=== PATIENT | female | born 1995 | race Asian ===

== ENCOUNTER 2016-07-31 12:05 | Observation (INO) | payer OTHER ==
[2016-07-31] MEDS ORDERED: NS 1,000 ML IV ONE ×2 (12:28→14:14)
[2016-07-31 12:49] LABS: COLOR YELLOW; LEUKOCYTE ESTERASE,URINE 1+ (NEGATIVE); NITRITE,URINE NEGATIVE (NEGATIVE)
[2016-07-31 12:52] LABS: BACTERIA 1+ /hpf (NONE SEEN); MUCUS 3+ /lpf (NONE-1+)
[2016-07-31 13:02] LABS: ADD MORPH? NO; ADD SCAN? YES; FRAGMENT RBC FLAG 0 (0-99); HEMATOCRIT 48.9 % (38.0-47.0); HEMOGLOBIN 16.4 g/dL (12.6-16.3); LEFT SHIFT FLG 0 (0-99); LIPEMIA HEMOLYSIS FLAG 80 (0-99); MEAN CELL HEMOGLOBIN 28.9 pg (27.9-34.1); MEAN CELL HEMOGLOBIN CONCENTR. 33.5 g/dL (32.4-36.7); MEAN CELL VOLUME 86.2 fL (81.5-99.8); MEAN PLATELET VOLUME 10.6 fL (8.7-11.7); PLATELET CLUMPS FLAG 0 (0-99); PLATELET COUNT 157 10^3/uL (150-400); RED BLOOD CELL COUNT 5.67 10^6/uL (4.18-5.33); RED CELL DISTRIBUTION WIDTH 12.4 % (11.5-15.2)
[2016-07-31 13:05] LABS: ATYPICAL LYMPHOCYTE FLAG 150 (0-99)
--- NOTE | 2016-07-31 13:10 | EDPHY ---
H & P Stated Complaint: fever, vomit, epigastric pain x 8 days--finished zpack and tamiflu HPI/ROS: CHIEF COMPLAINT: Nausea, vomiting, influenza HISTORY OF PRESENT ILLNESS: Patien for the complaints.t complains of 8 days history of flu-like symptoms. Body aches, chills, cough, nausea vomiting. She was seen at [facility] 3 times this week. She was diagnosed with influenza placed on Tamiflu. She was also diagnosed with bronchitis and placed on Zithromax and albuterol. Her symptoms persist despite these. She continues to vomit and has difficulty keeping even liquids down. She has had a fever throughout, which intermittently in briefly improves with Tylenol and ibuprofen. No chest pain. The cough is persistent and productive at times, and at times it is nonproductive. She has no lower abdominal pain. She has no flank pain. No rashes or lesions. No neck pain or stiffness. No headache. No other associated complaints or modifying factors. REVIEW OF SYSTEMS: Ten systems reviewed and are negative unless otherwise noted in the HPI PERTINENT MEDICAL HISTORY: Influenza, bronchitis EXAMINATION General Appearance: Alert, no distress Head: normocephalic, atraumatic Eyes: Pupils equal and round, no conjunctival pallor or injection ENT, Mouth: Mucous membranes moist. Uvula midline. No erythema or edema. Airway is widely patent. Neck: Normal inspection, supple, non-tender. Trachea midline. Respiratory: Mild rhonchi. No crackles or diminishment. No retractions. No distress. Cardiovascular: Regular rate and rhythm. No murmur. Pulses intact distally. Gastrointestinal: Abdomen is soft. Mild tenderness in the epigastrium. No tympany. No rigidity. No distention. No CVA tenderness. Back: non-tender, no bony abnormalities Neurological: A&O, nonfocal, GCS 15. Skin: Warm and dry, no rash. No petechiae or purpura. Extremities: Nontender, no pedal edema Psychiatric: Mood and affect normal DIFFERENTIAL DIAGNOSES: Including but not limited to influenza, infectious mononucleosis, viral illness , bronchitis, pneumonia, dehydration, electrolyte disturbance MDM: 1:15 p.m. Flu-like symptoms with ongoing nausea and vomiting. Vital signs are stable. Abdominal exam is mildly tender in the epigastrium, but exam is benign and nonacute. Laboratory studies are pending. I will order antiemetics and IV fluid resuscitation. 2:15 p.m. X-ray reveals cardiomegaly question the possibility of murmurs. I have re- evaluated the patient and there is no murmur by auscultation appreciated. Her laboratory studies reveal a leukocytopenia with some lymphocytopenia as well. 2:30 p.m. Patient is feeling minimally better and still not tolerating intake by mouth. She does have laboratory studies as listed above. They are uncomfortable concerned about going home given the duration of the vomiting. I have contacted hospitalist and discussed case with Dr. Rubio. He will admit the patient to observation status. She is admitted in stable condition SUPERVISION: This patient was independently evaluated without direct examination by the attending physician. Case was discussed with attending physician. Case discussed with Dr. Flores Source: Patient Exam Limitations: No limitations - Personal History LMP (Females 10-55): 8-14 Days Ago Current Tetanus/Diphtheria Vaccine: Unsure Current Tetanus Diphtheria and Acellular Pertussis (TDAP): Unsure - Medical/Surgical History Hx Asthma: No Hx Chronic Respiratory Disease: No Hx Diabetes: No Hx Cardiac Disease: No Hx Renal Disease: No Hx Cirrhosis: No Hx Alcoholism: No Hx HIV/AIDS: No Hx Splenectomy or Spleen Trauma: No Other PMH: healthy. no surgeries - Social History Smoking Status: Never smoked Constitutional: Initial Vital Signs Temperature (C) 98.4 F 07/31/16 12:15 Heart Rate 87 07/31/16 12:15 Respiratory Rate 16 07/31/16 12:15 Blood Pressure 116/76 07/31/16 12:15 O2 Sat (%) 98 07/31/16 12:15 O2 Delivery Mode Room Air Allergies/Adverse Reactions: No Known Allergies Allergy (Unverified 07/31/16 12:13) Home Medications: Medication Instructions Recorded Tamiflu 07/31/16 Zofran Odt 07/31/16 Medical Decision Making - Diagnostics Imaging Results: Imaging Impressions Chest X-Ray 07/31/16 13:21 Impression: 1. Airways disease. No pneumonia. 2. Mild cardiomegaly. Are there any heart murmurs? Results discussed with Braxton Jauregui at 1:42 PM - Data Points Laboratory Results: Laboratory Results 07/31/16 12:55 07/31/16 12:55 07/31/16 07/31/16 07/31/16 12:55 12:55 12:55 WBC 2.85 10^3/uL L 10^3/uL (3.80-9.50) RBC 5.67 10^6/uL H 10^6/uL (4.18-5.33) Hgb 16.4 g/dL H g/dL (12.6-16.3) Hct 48.9 % H % (38.0-47.0) MCV 86.2 fL fL (81.5-99.8) MCH 28.9 pg pg (27.9-34.1) MCHC 33.5 g/dL g/dL (32.4-36.7) RDW 12.4 % % (11.5-15.2) Plt Count 157 10^3/uL 10^3/uL (150-400) MPV 10.6 fL fL (8.7-11.7) Neut % (Auto) Not Reported Lymph % (Auto) Not Reported [place] % (Auto) Not Reported Eos % (Auto) Not Reported Baso % (Auto) Not Reported Nucleat RBC Rel Count 0.0 % % (0.0-0.2) Absolute Neuts (auto) Not Reported Absolute Lymphs (auto) Not Reported Absolute Monos (auto) Not Reported Absolute Eos (auto) Not Reported Absolute Basos (auto) Not Reported Absolute Nucleated RBC 0.00 10^3/uL 10^3/uL (0-0.01) Immature Gran % Not Reported Seg Neutrophils % 29 % % Lymphocytes % 64 % % Monocytes % 6 % % Eosinophils % 1 % % Immature Gran # Not Reported Absolute Seg Neuts 0.83 10^/uL L 10^/uL (1.70-6.50) Absolute Lymphocytes 1.82 10^3/uL 10^3/uL (1.00-3.00) Absolute Monocytes 0.17 10^3/uL L 10^3/uL (0.30-0.80) Absolute Eosinophils 0.03 10^3/uL 10^3/uL (0.03-0.40) RBC/WBC/PLT Morphology NORMAL (NORMAL) Atypical Lymphocytes 1+ H Platelet Estimate ADEQUATE (ADEQ) Sodium 144 mEq/L mEq/L (134-144) Potassium 4.3 mEq/L mEq/L (3.5-5.2) Chloride 106 mEq/L mEq/L (97-110) Carbon Dioxide 26 mEq/l mEq/l (22-31) Anion Gap 12 mEq/L mEq/L (8-16) BUN 11 mg/dL mg/dL (7-23) Creatinine 0.7 mg/dL mg/dL (0.6-1.0) Estimated GFR > 60 Glucose 89 mg/dL mg/dL (70-100) Calcium 9.6 mg/dL mg/dL (8.5-10.4) Total Bilirubin 0.5 mg/dL mg/dL (0.1-1.4) Conjugated Bilirubin 0.3 mg/dL mg/dL (0.0-0.5) Unconjugated Bilirubin 0.2 mg/dL mg/dL (0.0-1.1) AST 23 IU/L IU/L (14-46) ALT 29 IU/L IU/L (9-52) Alkaline Phosphatase 60 IU/L IU/L (38-126) Total Protein 8.9 g/dL H g/dL (6.3-8.2) Albumin 4.6 g/dL g/dL (3.5-5.0) Lipase 138.0 IU/L IU/L (23-300) Beta HCG, Qual NEGATIVE Urine Color Urine Appearance Urine pH Ur Specific [place] Urine Protein Urine Ketones Urine Blood Urine Nitrate Urine Bilirubin Urine Urobilinogen Ur Leukocyte Esterase Urine RBC Urine WBC Ur Epithelial Cells Urine Bacteria Urine Mucus Urine Glucose Monoscreen NEGATIVE (NEGATIVE) Influenza Typ A,B (DFA) 07/31/16 07/31/16 12:35 12:35 WBC RBC Hgb Hct MCV MCH MCHC RDW Plt Count MPV Neut % (Auto) Lymph % (Auto) [place] % (Auto) Eos % (Auto) Baso % (Auto) Nucleat RBC Rel Count Absolute Neuts (auto) Absolute Lymphs (auto) Absolute Monos (auto) Absolute Eos (auto) Absolute Basos (auto) Absolute Nucleated RBC Immature Gran % Seg Neutrophils % Lymphocytes % Monocytes % Eosinophils % Immature Gran # Absolute Seg Neuts Absolute Lymphocytes Absolute Monocytes Absolute Eosinophils RBC/WBC/PLT Morphology Atypical Lymphocytes Platelet Estimate Sodium Potassium Chloride Carbon Dioxide Anion Gap BUN Creatinine Estimated GFR Glucose Calcium Total Bilirubin Conjugated Bilirubin Unconjugated Bilirubin AST ALT Alkaline Phosphatase Total Protein Albumin Lipase Beta HCG, Qual Urine Color YELLOW Urine Appearance HAZY Urine pH 5.0 (5.0-7.5) Ur Specific [place] 1.027 (1.002-1.030) Urine Protein 1+ H (NEGATIVE) Urine Ketones TRACE H (NEGATIVE) Urine Blood NEGATIVE (NEGATIVE) Urine Nitrate NEGATIVE (NEGATIVE) Urine Bilirubin NEGATIVE (NEGATIVE) Urine Urobilinogen NEGATIVE EU EU (0.2-1.0) Ur Leukocyte Esterase 1+ H (NEGATIVE) Urine RBC 1-3 /hpf /hpf (0-3) Urine WBC 5-10 /hpf H /hpf (0-3) Ur Epithelial Cells 1+ /lpf /lpf (NONE-1+) Urine Bacteria 1+ /hpf H /hpf (NONE SEEN) Urine Mucus 3+ /lpf H /lpf (NONE-1+) Urine Glucose NEGATIVE (NEGATIVE) Monoscreen Influenza Typ A,B (DFA) NEGATIVE FOR FLU (NEGATIVE) Medications Given: Discontinued Medications Diphenhydramine HCl (Benadryl Injection) 25 mg IVP EDNOW ONE Stop: 07/31/16 13:18 Last Admin: 07/31/16 13:30 Dose: 25 mg Sodium Chloride (Ns) 1,000 mls @ 0 mls/hr IV ONCE ONE PRN Reason: Wide Open Stop: 07/31/16 12:29 Last Admin: 07/31/16 12:54 Dose: 1,000 mls Metoclopramide HCl (Reglan Injection) 10 mg IVP EDNOW ONE Stop: 07/31/16 13:18 Last Admin: 07/31/16 13:30 Dose: 10 mg Ondansetron HCl (Zofran) 4 mg IVP EDNOW ONE Stop: 07/31/16 13:18 Last Admin: 07/31/16 13:30 Dose: 4 mg Departure - Departure Disposition: [facility] Inpatient Acute Clinical Impression: Dehydration, Cardiomegaly Nausea and vomiting Qualifiers: Vomiting type: unspecified Vomiting Intractability: intractable Qualified Code( s): R11.2 - Nausea with vomiting, unspecified Leukocytopenia Qualifiers: Leukopenia type: lymphocytopenia Qualified Code(s): D72.810 - Lymphocytopenia Condition: Good
[2016-07-31 13:12] LABS: BHCG-QUALITATIVE NEGATIVE
[2016-07-31 13:13] LABS: MONO TEST NEGATIVE (NEGATIVE)
[2016-07-31 13:14] LABS: ALANINE AMINOTRANSFERASE 29 IU/L (9-52); ALBUMIN 4.6 g/dL (3.5-5.0); ALKALINE PHOSPHATASE 60 IU/L (38-126); ANION GAP 12 mEq/L (8-16); ASPARTATE AMINOTRANSFERASE 23 IU/L (14-46); BILIRUBIN,TOTAL 0.5 mg/dL (0.1-1.4); BILIRUBIN-CONJUGATED 0.3 mg/dL (0.0-0.5); BILIRUBIN-UNCONJUGATED 0.2 mg/dL (0.0-1.1); CALCIUM 9.6 mg/dL (8.5-10.4); CARBON DIOXIDE 26 mEq/l (22-31); CHLORIDE 106 mEq/L (97-110); CREATININE 0.7 mg/dL (0.6-1.0); GLOMERULAR FILTRATION RATE > 60; GLUCOSE 89 mg/dL (70-100); POTASSIUM 4.3 mEq/L (3.5-5.2); SODIUM 144 mEq/L (134-144); TOTAL PROTEIN 8.9 g/dL (6.3-8.2)
[2016-07-31] MEDS ORDERED: ONDANSETRON 4 MG/2 ML VIAL IVP ONE (13:17)
[2016-07-31] MEDS ORDERED: METOCLOPRAMIDE 10 MG/2 ML VIAL IVP ONE (13:17)
[2016-07-31 13:23] LABS: ADD DIFF? YES
[2016-07-31 13:54] LABS: PLATELET ESTIMATE ADEQUATE (ADEQ)
[2016-07-31] MEDS ORDERED: ACETAMINOPHEN 325 MG TAB PO PRN (14:42)
[2016-07-31] MEDS ORDERED: ONDANSETRON 4 MG/2 ML VIAL IVP PRN (14:42)
[2016-07-31] MEDS ORDERED: PROMETHAZINE HCL 25 MG SUPPR PR PRN (14:43)
[2016-07-31] MEDS ORDERED: NS 1,000 ML IV SCH (14:45)
--- NOTE | 2016-07-31 15:44 | PDGENHP ---
History and Physical History and Physical: HISTORY AND PHYSICAL CC:Nausea vomiting cough aches and fever HISTORY: This patient had onset of fever 8 days ago and since then has continued to have daily fevers including 101 degrees this morning at home. She has had headaches diffuse myalgias and arthralgias without joint swelling, nausea and vomiting with mild achy abdominal discomfort but no bleeding or diarrhea. She does not have a sore throat. She has a mildly productive cough without chest pain or shortness of breath. She has not notice rashes, oral ulcers, ocular symptoms. She has not noticed neck stiffness Her boyfriend had fever and a cough for a day several days before she became ill but got over his illness quite quickly. She is not around anyone else who is ill that she knows of. She is from [facility] but has been here as a student continuously for the past 12 months and has not traveled outside of [place] in the past 12 months. 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 Her father is a physician in [facility]. She does not use alcohol or drugs. She has a boyfriend. MEDICATIONS: The patients list has been reconciled by our clinical pharmacist in the EMR. I have reviewed the list and ordered appropriate medicines. PHYSICAL EXAMINATION: Vital Signs: Temperature so far here normal with normal vital signs Examination: General: alert, oriented, good mentation, relaxed Skin: warm, dry, good color, no rash HEENT: normal, specifically no pharyngitis or oral ulcerations Neck: no mass or jvd Resps: relaxed Lungs: clear breath sounds Heart: regular, no murmur Abdomen: soft, nondistended, with a few areas of minimal tenderness without guarding or rebound, +BS, no mass Upper Extremities: normal Lower Extremities: no edema, warm No Bleeding or bruising Neurologic: normal speech/language, normal generator operator, no focal weakness IV site: looks normal LABORATORY DATA: mildly elevated hemoglobin at 16 and total protein 8.9 indicating likely dehydration Mild leukopenia with white cell count of 2.8 and neutropenia with 830 neutrophils RADIOLOGY STUDIES: two-view chest x-ray done in the ER, my personal interpretation of the images: There is no evidence of infiltrate or other inflammatory lung process, pleural disease, effusions, heart failure, or adenopathy or masses ASSESSMENT: 1- most likely viral illness with fever, cough, nausea and vomiting, myalgias arthralgias and headache. She is tested here negative for influenza and is 8 days into an illness still having fever so influenza is quite unlikely. A little bit confusing the picture is that she did have Tamiflu prescribed 2 days ago but at least as far as I can tell never really had an influenza test done. Parainfluenza virus is certainly possible as well as a number of other viruses. At the onset of her illness she was diagnosed with bronchitis but her whole clinical picture is not very suggestive of that. She did not respond antibiotics and I do not have any reason to believe that this time that she has a bacterial infection. 2- Neutropenia, most likely due to viral illness Given the duration of her illness and her neutropenia, it is certainly possible though quite unlikely that this is not an infection and represents either some type of autoimmune or malignant illness. Will need to watch for signs of resolution and consider further specific evaluation if she does not improve. I will order a respiratory viral panel to see if we can identify any specific viral infection. I have reviewed the patient's case in detail with SHERLY Bermeo
[2016-07-31 16:17] VITALS: RESP 18
[2016-07-31] MEDS: OSELTAMIVIR PHOSPHATE 75 MG CAP PO SCH (20:43)
[2016-08-01 05:23] LABS: ADD DIFF? NO; ADD MORPH? NO; ADD SCAN? YES; FRAGMENT RBC FLAG 0 (0-99); HEMATOCRIT 40.1 % (38.0-47.0); HEMOGLOBIN 13.3 g/dL (12.6-16.3); LEFT SHIFT FLG 0 (0-99); LIPEMIA HEMOLYSIS FLAG 80 (0-99); MEAN CELL HEMOGLOBIN 28.7 pg (27.9-34.1); MEAN CELL HEMOGLOBIN CONCENTR. 33.2 g/dL (32.4-36.7); MEAN CELL VOLUME 86.4 fL (81.5-99.8); MEAN PLATELET VOLUME 10.5 fL (8.7-11.7); PLATELET CLUMPS FLAG 0 (0-99); PLATELET COUNT 133 10^3/uL (150-400); RED BLOOD CELL COUNT 4.64 10^6/uL (4.18-5.33); RED CELL DISTRIBUTION WIDTH 12.3 % (11.5-15.2)
[2016-08-01 05:24] LABS: ALANINE AMINOTRANSFERASE 26 IU/L (9-52); ALBUMIN 3.1 g/dL (3.5-5.0); ALKALINE PHOSPHATASE 43 IU/L (38-126); ANION GAP 8 mEq/L (8-16); ASPARTATE AMINOTRANSFERASE 17 IU/L (14-46); BILIRUBIN,TOTAL 0.5 mg/dL (0.1-1.4); BILIRUBIN-CONJUGATED 0.4 mg/dL (0.0-0.5); BILIRUBIN-UNCONJUGATED 0.1 mg/dL (0.0-1.1); CALCIUM 8.1 mg/dL (8.5-10.4); CARBON DIOXIDE 20 mEq/l (22-31); CHLORIDE 114 mEq/L (97-110); CREATININE 0.7 mg/dL (0.6-1.0); GLOMERULAR FILTRATION RATE > 60; GLUCOSE 76 mg/dL (70-100); POTASSIUM 4.1 mEq/L (3.5-5.2); SODIUM 142 mEq/L (134-144); TOTAL PROTEIN 5.9 g/dL (6.3-8.2)
[2016-08-01 05:48] LABS: ATYPICAL LYMPHOCYTE FLAG 130 (0-99)
[2016-08-01 06:44] LABS: SCAN NEGATIVE
[2016-08-01 08:14] VITALS: BP 108/79; PULSE 65; TEMP 98.3; O2SAT 96
[2016-08-01] MEDS ORDERED: BIRTH CONTROL PILL PO SCH (09:00)
[2016-08-01] MEDS: OSELTAMIVIR PHOSPHATE 75 MG CAP PO SCH (09:49)
--- NOTE | 2016-08-01 14:50 | GDS ---
[f rep st] DISCHARGE SUMMARY DISCHARGE DIAGNOSIS: Influenza B. HOSPITAL COURSE AND STAY BY PROBLEM: Influenza B: The patient presented to the hospital with nause a, vomiting, cough, and fever. On hospital day #1, the patient states her symptoms are vastly impro sim. She has been continued on Tamiflu. On day of discharge, she is tolerating a regular diet. PHYSICAL EXAMINATION: VITAL SIGNS: On day of discharge, blood pressure 108/79, heart rate 65, resp iratory rate 18, O2 sat 96% on room air. Temperature afebrile. GENERAL: No acute distress. HEART : S1, S2. LUNGS: Clear. ABDOMEN: Soft, nontender, nondistended. No guarding or rebound tendern ess. Normoactive bowel sounds. PERTINENT LABORATORIES AND STUDIES: Influenza B was positive on the nasal PCR panel. DISCHARGE MEDICATIONS: Please refer to discharge medication reconciliation in [facility] for details. DISCHARGE INSTRUCTIONS: The patient was discharged home and was instructed to seek medical attentio n if her symptoms persist or worsen. /[id number]/MODL
[2016-08-02 07:57] LABS: ANTI EBNA Positive (Negative); ANTI VCA/IgG Positive (Negative); ANTI VCA/IgM Negative (Negative)
== END 2016-08-01 11:30 | disposition home or self-care (01) ==
LOC: F1N 16:47
PROVIDERS: ADMIT Internal Medicine; ATTEND Internal Medicine
DX: J10.1 Influenza due to other identified influenza virus with other respiratory manifestations (principal); I51.7 Cardiomegaly
CPT/HCPCS: G0378 ×2; 86664-90; 86665-90; 96374; J1200; J2405; J2765

== ENCOUNTER 2016-08-11 06:23 | Emergency (ER) | payer OTHER ==
[2016-08-11 06:28] VITALS: RESP 18
[2016-08-11] MEDS ORDERED: NS 1,000 ML IV ONE (06:44)
[2016-08-11] MEDS ORDERED: ONDANSETRON DISINTEGRATING 4 MG TAB PO ONE (06:44)
[2016-08-11] MEDS ORDERED: FAMOTIDINE 20 MG/NACL 50 ML IV ONE (06:44)
--- NOTE | 2016-08-11 06:50 | EDPHY ---
H & P Stated Complaint: VOMITING AND ABD PAIN HX OF SAME 2 WEEKS AGO Source: Patient Exam Limitations: No limitations - Personal History LMP (Females 10-55): 22-28 Days Ago Current Tetanus/Diphtheria Vaccine: Yes Current Tetanus Diphtheria and Acellular Pertussis (TDAP): Yes Tetanus Vaccine Date: 2015 - Medical/Surgical History Hx Asthma: No Hx Chronic Respiratory Disease: No Hx Diabetes: No Hx Cardiac Disease: No Hx Renal Disease: No Hx Cirrhosis: No Hx Alcoholism: No Hx HIV/AIDS: No Hx Splenectomy or Spleen Trauma: No Other PMH: healthy. no surgeries - Social History Smoking Status: Never smoked Time Seen by Provider: 08/11/16 06:39 HPI/ROS: HPI The patient presents with vomiting which began about 12 hours ago, she has had 6 episodes of nonbloody nonbilious emesis. This is associated with diffuse body aches, fever as high as 101 F and abdominal pain. She feels pain throughout her abdomen which is achy in nature and has been intermittent, this preceded the vomiting. She has not had any urinary symptoms. She was recently admitted to the hospital for influenza B with symptoms of fever , cough, abdominal pain, vomiting. She got better after 1 day and was discharged home. REVIEW OF SYSTEMS Constitutional: Fevers are present Eyes: No discharge. ENT: No sore throat. Cardiovascular: No chest pain, no palpitations. Respiratory: No cough, no shortness of breath. Gastrointestinal: See HPI Genitourinary: No hematuria. Musculoskeletal: No back pain. Skin: No rashes. Neurological: No headache. PMHx: Healthy, recent influenza B Soc Hx: From [facility] PHYSICAL General Appearance: Alert, no distress Eyes: Pupils equal and round no pallor or injection ENT, Mouth: Mucous membranes moist Respiratory: There are no retractions, lungs are clear to auscultation Cardiovascular: Regular rate and rhythm Gastrointestinal: Abdomen is soft with tenderness in the epigastrium and lower quadrants which is quite mild, no masses, bowel sounds normal Neurological: A&O, moves all extremities Skin: Warm and dry, no rashes Musculoskeletal: Neck is supple non tender Extremities: symmetrical, full range of motion Psychiatric: Patient is oriented X 3, there is no agitation (Riguzzi,Francy) Constitutional: Initial Vital Signs Temperature (C) 36.9 C 08/11/16 06:24 Heart Rate 106 H 08/11/16 06:24 Respiratory Rate 18 08/11/16 06:24 Blood Pressure 121/85 H 08/11/16 06:24 O2 Sat (%) 95 08/11/16 06:24 O2 Delivery Mode Room Air Allergies/Adverse Reactions: No Known Allergies Allergy (Unverified 08/11/16 06:28) Home Medications: Medication Instructions Recorded Acetaminophen [Tylenol 325mg (*)] 650 mg PO Q6 PRN 07/31/16 Control Pill 1 tab PO DAILY 07/31/16 Ibuprofen [Motrin (*)] 800 mg PO Q6 PRN 07/31/16 Hydrocodone/APAP 5/325 [Dres[place] 1 - 2 tab PO Q4 #13 tab 08/11/16 5/325 (RX)] Ondansetron Odt [Zofran Odt 4 mg 4 mg PO Q4 PRN #10 tab 08/11/16 (*)] Medical Decision Making - Diagnostics Imaging Results: Imaging Impressions Abdomen CT 08/11/16 07:28 Impression: 1. Normal appendix and mild constipation. 2. No localized acute intraabdominal process. Findings discussed with Emergency Department physician, Francy Harvey M.D. on August 11, 2016 at 8:56 a.m. ED Course/Re-evaluation: 7:20 a.m.- The patient has been stable. Labs are still pending. The case has been signed out to Dr. Chavez. She says her pain is worsening now, I have ordered a CT scan. (Francy Harvey) 720: The patient is signed out to me at change of shift. I reviewed the case with Dr. Parker. 810: Recheck. She states she feels better on repeat exam. Abdomen is soft with no rebound or guarding. Awaiting CT results. Abdominal pelvic CT. Please refer the dictated report by Dr. Neymar Hudson. No acute disease noted. I rechecked the patient. I discussed the results. I answered all her questions. She was lying in the bed. She had no significant pain. Abdomen was soft, nontender nondistended. I answered the patient's questions. I had a long discussion with the patient and her family. I answered all her questions. They were given warnings prior to leaving. They requested more Zofran and pain medication. Patient will return if her symptoms worsen. (Shraddha Chavez ) Differential Diagnosis: This is a 20-year-old healthy female with recent history of influenza B requiring admission about 10 days ago who now presents from home with nausea, vomiting, fever, diffuse abdominal pain for the last 1 day. On arrival, she is afebrile, she is mildly tachycardic, she is comfortable appearing, she has diffuse tenderness on her abdominal exam which is mild. Differential diagnosis includes colitis, diverticulitis, viral gastroenteritis, toxin mediated enterocolitis, hepatitis, pancreatitis, biliary colic. Plan for IV fluids, Zofran, Pepcid. Plan to check basic labs and reassess her. She may not require any imaging if labs are normal, as she is quite comfortable. (Francy Harvey) - Data Points Laboratory Results: Laboratory Results 08/11/16 06:58 08/11/16 06:58 08/11/16 08/11/16 08/11/16 07:35 07:35 06:58 WBC RBC Hgb Hct MCV MCH MCHC RDW Plt Count MPV Neut % (Auto) Lymph % (Auto) [place] % (Auto) Eos % (Auto) Baso % (Auto) Nucleat RBC Rel Count Absolute Neuts (auto) Absolute Lymphs (auto) Absolute Monos (auto) Absolute Eos (auto) Absolute Basos (auto) Absolute Nucleated RBC Immature Gran % Immature Gran # Sodium Potassium Chloride Carbon Dioxide Anion Gap BUN Creatinine Estimated GFR Glucose Calcium Total Bilirubin Conjugated Bilirubin Unconjugated Bilirubin AST ALT Alkaline Phosphatase Total Protein Albumin Lipase Beta HCG, Qual NEGATIVE Urine Color YELLOW Urine Appearance CLEAR Urine pH 7.0 (5.0-7.5) Ur Specific [place] 1.016 (1.002-1.030) Urine Protein NEGATIVE (NEGATIVE) Urine Ketones TRACE H (NEGATIVE) Urine Blood 1+ H (NEGATIVE) Urine Nitrate NEGATIVE (NEGATIVE) Urine Bilirubin NEGATIVE (NEGATIVE) Urine Urobilinogen NEGATIVE EU EU (0.2-1.0) Ur Leukocyte Esterase NEGATIVE (NEGATIVE) Urine RBC 3-5 /hpf H /hpf (0-3) Urine WBC 1-3 /hpf /hpf (0-3) Ur Epithelial Cells 1+ /lpf /lpf (NONE-1+) Urine Bacteria TRACE /hpf H /hpf (NONE SEEN) Urine Mucus TRACE /lpf /lpf (NONE-1+) Ur Culture Indicated? Cancelled NOT INDICATED (NI) Urine Glucose NEGATIVE (NEGATIVE) 08/11/16 08/11/16 06:58 06:58 WBC 4.82 10^3/uL 10^3/uL (3.80-9.50) RBC 5.21 10^6/uL 10^6/uL (4.18-5.33) Hgb 15.1 g/dL g/dL (12.6-16.3) Hct 44.8 % % (38.0-47.0) MCV 86.0 fL fL (81.5-99.8) MCH 29.0 pg pg (27.9-34.1) MCHC 33.7 g/dL g/dL (32.4-36.7) RDW 12.0 % % (11.5-15.2) Plt Count 256 10^3/uL 10^3/uL (150-400) MPV 9.9 fL fL (8.7-11.7) Neut % (Auto) 82.0 % H % (39.3-74.2) Lymph % (Auto) 10.8 % L % (15.0-45.0) [place] % (Auto) 6.0 % % (4.5-13.0) Eos % (Auto) 0.8 % % (0.6-7.6) Baso % (Auto) 0.4 % % (0.3-1.7) Nucleat RBC Rel Count 0.0 % % (0.0-0.2) Absolute Neuts (auto) 3.95 10^3/uL 10^3/uL (1.70-6.50) Absolute Lymphs (auto) 0.52 10^3/uL L 10^3/uL (1.00-3.00) Absolute Monos (auto) 0.29 10^3/uL L 10^3/uL (0.30-0.80) Absolute Eos (auto) 0.04 10^3/uL 10^3/uL (0.03-0.40) Absolute Basos (auto) 0.02 10^3/uL 10^3/uL (0.02-0.10) Absolute Nucleated RBC 0.00 10^3/uL 10^3/uL (0-0.01) Immature Gran % 0.0 % % (0.0-1.1) Immature Gran # 0.00 10^3/uL 10^3/uL (0.00-0.10) Sodium 142 mEq/L mEq/L (134-144) Potassium 4.1 mEq/L mEq/L (3.5-5.2) Chloride 107 mEq/L mEq/L (97-110) Carbon Dioxide 23 mEq/l mEq/l (22-31) Anion Gap 12 mEq/L mEq/L (8-16) BUN 13 mg/dL mg/dL (7-23) Creatinine 0.6 mg/dL mg/dL (0.6-1.0) Estimated GFR > 60 Glucose 95 mg/dL mg/dL (70-100) Calcium 9.2 mg/dL mg/dL (8.5-10.4) Total Bilirubin 0.7 mg/dL mg/dL (0.1-1.4) Conjugated Bilirubin 0.4 mg/dL mg/dL (0.0-0.5) Unconjugated Bilirubin 0.3 mg/dL mg/dL (0.0-1.1) AST 30 IU/L IU/L (14-46) ALT 34 IU/L IU/L (9-52) Alkaline Phosphatase 66 IU/L IU/L (38-126) Total Protein 7.5 g/dL g/dL (6.3-8.2) Albumin 4.1 g/dL g/dL (3.5-5.0) Lipase 134.0 IU/L IU/L (23-300) Beta HCG, Qual Urine Color Urine Appearance Urine pH Ur Specific [place] Urine Protein Urine Ketones Urine Blood Urine Nitrate Urine Bilirubin Urine Urobilinogen Ur Leukocyte Esterase Urine RBC Urine WBC Ur Epithelial Cells Urine Bacteria Urine Mucus Ur Culture Indicated? Urine Glucose Medications Given: Discontinued Medications Sodium Chloride (Ns) 1,000 mls @ 0 mls/hr IV ONCE ONE PRN Reason: Wide Open Stop: 08/11/16 06:45 Last Admin: 08/11/16 07:01 Dose: 1,000 mls Famotidine/Sodium Chloride (Pepcid 20 Mg (Premix)) 50 mls @ 200 mls/hr IV EDNOW ONE Stop: 08/11/16 06:58 Last Admin: 08/11/16 07:01 Dose: 50 mls Ketorolac Tromethamine (Toradol) 15 mg IVP EDNOW ONE Stop: 08/11/16 07:29 Last Admin: 08/11/16 07:35 Dose: 15 mg Ondansetron HCl (Zofran Odt) 4 mg PO EDNOW ONE Stop: 08/11/16 06:45 Last Admin: 08/11/16 07:02 Dose: Not Given Ondansetron HCl (Zofran) 4 mg IVP EDNOW ONE Stop: 08/11/16 07:02 Last Admin: 08/11/16 07:02 Dose: 4 mg Departure - Departure Disposition: Home, Routine, Self-Care Clinical Impression: Abdominal pain Qualifiers: Abdominal location: unspecified location Qualified Code(s): R10.9 - Unspecified abdominal pain Vomiting Qualifiers: Vomiting type: unspecified Vomiting Intractability: non-intractable Nausea presence: with nausea Qualified Code(s): R11.2 - Nausea with vomiting, unspecified Fever Qualifiers: Fever type: unspecified Qualified Code(s): R50.9 - Fever, unspecified Condition: Good Instructions: Acute Nausea and Vomiting (ED) Additional Instructions: Please return to the emergency room if your worse in any way. You should follow up with your regular doctor in the next few days. Referrals: NONE *PRIMARY CARE P,. [Primary Care Provider] - As per Instructions Stand Alone Forms: School Excuse Prescriptions: Hydrocodone/APAP 5/325 [D[place]her 5/325 (RX)] 1 - 2 tab PO Q4 #13 tab Ondansetron Odt [Zofran Odt 4 mg (*)] 4 mg PO Q4 PRN #10 tab PRN Reason: Nausea/Vomiting, Can'T Take Po
[2016-08-11] MEDS ORDERED: ONDANSETRON 4 MG/2 ML VIAL ONE (06:53)
[2016-08-11] MEDS ORDERED: ONDANSETRON 4 MG/2 ML VIAL IVP ONE (07:01)
[2016-08-11 07:05] LABS: ADD DIFF? NO; ADD MORPH? NO; ADD SCAN? NO; ATYPICAL LYMPHOCYTE FLAG 20 (0-99); FRAGMENT RBC FLAG 0 (0-99); HEMATOCRIT 44.8 % (38.0-47.0); HEMOGLOBIN 15.1 g/dL (12.6-16.3); LEFT SHIFT FLG 0 (0-99); LIPEMIA HEMOLYSIS FLAG 80 (0-99); MEAN CELL HEMOGLOBIN CONCENTR. 33.7 g/dL (32.4-36.7); MEAN PLATELET VOLUME 9.9 fL (8.7-11.7); PLATELET CLUMPS FLAG 10 (0-99); PLATELET COUNT 256 10^3/uL (150-400); RED BLOOD CELL COUNT 5.21 10^6/uL (4.18-5.33)
[2016-08-11 07:26] LABS: ALANINE AMINOTRANSFERASE 34 IU/L (9-52); ALBUMIN 4.1 g/dL (3.5-5.0); ALKALINE PHOSPHATASE 66 IU/L (38-126); ANION GAP 12 mEq/L (8-16); ASPARTATE AMINOTRANSFERASE 30 IU/L (14-46); BILIRUBIN,TOTAL 0.7 mg/dL (0.1-1.4); BILIRUBIN-CONJUGATED 0.4 mg/dL (0.0-0.5); BILIRUBIN-UNCONJUGATED 0.3 mg/dL (0.0-1.1); CALCIUM 9.2 mg/dL (8.5-10.4); CARBON DIOXIDE 23 mEq/l (22-31); CHLORIDE 107 mEq/L (97-110); CREATININE 0.6 mg/dL (0.6-1.0); GLOMERULAR FILTRATION RATE > 60; GLUCOSE 95 mg/dL (70-100); POTASSIUM 4.1 mEq/L (3.5-5.2); SODIUM 142 mEq/L (134-144); TOTAL PROTEIN 7.5 g/dL (6.3-8.2)
[2016-08-11] MEDS ORDERED: KETOROLAC 15 MG/1 ML SDV IVP ONE (07:28)
[2016-08-11] MEDS ORDERED: IOPAMIDOL (ISOVUE-300) 100 ML BTL IV ONE (07:42)
[2016-08-11 07:43] LABS: COLOR YELLOW; LEUKOCYTE ESTERASE,URINE NEGATIVE (NEGATIVE); NITRITE,URINE NEGATIVE (NEGATIVE)
[2016-08-11 08:08] LABS: BACTERIA TRACE /hpf (NONE SEEN); MUCUS TRACE /lpf (NONE-1+)
[2016-08-11 09:23] VITALS: BP 109/71; PULSE 87; TEMP 98.8; O2SAT 94
== END 2016-08-11 09:23 | disposition home or self-care (01) ==
DX: R11.2 Nausea with vomiting, unspecified (principal); R50.9 Fever, unspecified; R10.9 Unspecified abdominal pain
CPT/HCPCS: 96374; J1885; J2405; Q9967

== ENCOUNTER 2018-03-14 16:50 | Emergency (ER) | payer OTHER ==
--- NOTE | 2018-03-14 17:06 | EDPHY ---
H & P Stated Complaint: SOB Time Seen by Provider: 03/14/18 17:06 HPI/ROS: HPI: This is a 22-year-old female who presents with Chief Complaint: Shortness of breath Location: Chest Quality: Dyspnea Duration: 1 week Signs and Symptoms: + shortness of breath at rest, + shortness of breath on exertion, no cough, no chest pain, no palpitations, no lower extremity edema, no wheezing, no orthopnea, no paroxysmal nocturnal dyspnea, no fever, no injury/ trauma, no hemoptysis, no carpal pedal spasms Timing: Acute, worsening Severity: Moderate Context: Patient is a student at [employer], presents from the [facility], with complaints of shortness of breath for the last week that is slowly worsening. She reports that is difficult to take a deep breath. She also complains of intermittent anterior generalized nonradiating chest pain that is described as pressure like. She denies nausea, vomiting, diaphoresis, palpitation. [facility] she was gasping in rocking back and forth on the examination table. A CBC was within normal limits in D-dimer negative. She was sent to the emergency room for further evaluation. Patient reports that she took a trip to [facility] over . She does not take any hormone replacement therapy or control pills. She is a nonsmoker. No history of clotting disorder in the family. After further questioning patient does report increased anxiety and stress over the last week due to exams. Modifying Factors: None Comment: ROS: A comprehensive 10 system review of systems is otherwise negative aside from elements mentioned in the history of present illness. MEDICAL/SURGICAL/SOCIAL HISTORY: Medical history: Generally healthy. Does not take any regular medications. Surgical history: Denies Social history: Never smoked. CONSTITUTIONAL: Anxious, extremely well-appearing, adult female, awake and alert, no obvious distress HEENT: Atraumatic and normocephalic, PERRL, EOMI. Nares patent; no rhinorrhea; no nasal mucosal edema. Tympanic membranes clear. Oropharynx clear, no exudate and moist pink mucosa. Airway patent. No lymphadenopathy. No meningismus. Cardiovascular: Normal S1/S2, regular rate, regular rhythm, without murmur rub or gallop. PULMONARY/CHEST: Symmetrical and nontender. Clear to auscultation bilaterally. Good air movement. No accessory muscle usage. ABDOMEN: Soft, nondistended, nontender, no rebound, no guarding, no peritoneal signs, no masses or organomegaly. No CVAT. EXTREMITIES: 2/2 pulses, strength 5/5, no deformities, no clubbing, no cyanosis or edema. NEUROLOGICAL: no focal neuro deficits. GCS 15. SKIN: Warm and dry, no erythema. no rash. Good capillary refill. Source: Patient Exam Limitations: No limitations - Personal History Current Tetanus/Diphtheria Vaccine: Yes Current Tetanus Diphtheria and Acellular Pertussis (TDAP): Yes Tetanus Vaccine Date: 2015 - Medical/Surgical History Hx Asthma: No Hx Chronic Respiratory Disease: No Hx Diabetes: No Hx Cardiac Disease: No Hx Renal Disease: No Hx Cirrhosis: No Hx Alcoholism: No Hx HIV/AIDS: No Hx Splenectomy or Spleen Trauma: No Other PMH: healthy. no surgeries - Social History Smoking Status: Never smoked Constitutional: Initial Vital Signs Temperature (C) 36.7 C 03/14/18 17:00 Heart Rate 69 03/14/18 17:00 Respiratory Rate 20 03/14/18 17:00 Blood Pressure 127/88 H 03/14/18 17:00 O2 Sat (%) 100 03/14/18 17:00 O2 Delivery Mode Room Air Allergies/Adverse Reactions: No Known Allergies Allergy (Unverified 03/14/18 16:59) Home Medications: Medication Instructions Recorded Ibuprofen [Motrin (*)] 800 mg PO Q6 PRN 07/31/16 Medical Decision Making - Diagnostics EKG Interpretation: 12 lead EKG: Indication: Shortness of breath Rhythm: Normal sinus rhythm [place]: Normal Intervals: Normal QRS: Normal ST segments: Normal INTERPRETATION: No acute ischemic changes. No arrhythmias The 12 lead EKG was interpreted by myself and with attending. ED Course/Re-evaluation: Vital signs reviewed and show no signs of hypoxia, tachycardia. EKG and chest x-ray ordered 1741: Spoke with Radiology, Dr. Macias, who reports that the [facility] CT and chest x-ray ordered this morning and he red and it was essentially negative did not show any opacity, effusion, pneumothorax. EKG my read shows normal sinus rhythm with a rate of 82 beats per minute. Suspect this is related to anxiety and stress. Referral to the counseling on the campus as well as [facility]. Patient does not meet M1 hold or MIH criteria. Vital signs remained stable the entire ER course. Long discussion with patient regarding negative laboratory and imaging studies. This patient was seen under the supervision of my secondary supervising physician. I evaluated care for this patient independently. Discussed this patient with Dr. Dickens who did not see the patient. Differential Diagnosis: Shortness of breath including but not limited to pulmonary infectious process, COPD, asthma, pulmonary embolus and congestive heart failure. Chest pain including but not limited to myocardial ischemia, pulmonary embolus, chest wall pain, pleural inflammation and pulmonary infectious causes. Departure - Departure Disposition: Home, Routine, Self-Care Clinical Impression: Anxiety as acute reaction to exceptional stress Dyspnea Qualifiers: Dyspnea type: unspecified Qualified Code(s): R06.00 - Dyspnea, unspecified Condition: Good Instructions: Stress (ED), Panic Attack (ED), Anxiety (ED) Additional Instructions: Please follow-up with the counseling on campus or with [facility] in the next 5-7 days. Return to the ER immediately if you experience fevers/chills, abdominal pain, inability to tolerate oral intake, or any other symptoms that concern you. Referrals: [facility] [Cl[facility]] - As per Instructions [facility] - As per Instructions
[2018-03-14 19:05] VITALS: BP 113/77
--- NOTE | 2018-03-15 21:14 | CPEKG ---
Test Reason : OPEN Blood Pressure : / mmHG Vent. Rate : 082 BPM Atrial Rate : 079 BPM P-R Int : 133 ms QRS Dur : 081 ms QT Int : 400 ms P-R-T Axes : 072 086 034 degrees QTc Int : 468 ms Sinus rhythm Confirmed by Lo Goodwin ([id number]) on 03/15/2018 9:14:12 PM Referred By: Confirmed By:Lo Goodwin
== END 2018-03-14 19:05 | disposition home or self-care (01) ==
DX: F41.1 Generalized anxiety disorder (principal); F43.9 Reaction to severe stress, unspecified; R06.09 Other forms of dyspnea